=== PATIENT | female | born 1930 | race Caucasian/White ===

== ENCOUNTER → 2017-01-25 | Outpatient (CLI) | payer OTHER | LOC: KOH-I 16:07 | DX: M25.512 Pain in left shoulder (principal) | CPT/HCPCS: 73030 ==

== ENCOUNTER → 2017-03-30 | Outpatient (CLI) | payer OTHER | LOC: RAD 12:48 | DX: S40.021A Contusion of right upper arm, initial encounter (principal) | CPT/HCPCS: 73060; 73080 ==